=== PATIENT | female | born 2000 | race Caucasian/White ===

== ENCOUNTER 2019-06-25 17:24 | Outpatient (CLI) | payer OTHER, SELFPAY ==
--- NOTE | ~2019-06-25 | US_ITS ---
EXAMINATION: US OB <= 14 weeks fetus EXAM DATE: 06/25/2019 17:44 INDICATION: Check viability. First trimester. TECHNIQUE: Pelvic obstetrical transabdominal sonogram was performed by a technologist. There are mu ltiple grayscale and Doppler images available for interpretation. There are no earlier studies of th is gestation for comparison. FINDINGS: There is an intrauterine gestation with crown-rump length 4.0 cm corresponding to estimated gestational age 10 weeks 6 days. There are no heart tones identified. No subchorionic hemorrha ge. Adnexal regions are unremarkable. IMPRESSION: Nonviable intrauterine gestation, missed . Reviewed, dictated and finalized at location A.
== END 2019-06-25 17:25 | disposition home or self-care (01) ==
LOC: ANHIMG 17:26
PROVIDERS: Visit Provider Obstetrics & Gynecology
DX: O20.0 Threatened abortion (principal); Z3A.00 Weeks of gestation of pregnancy not specified
CPT/HCPCS: 76801

== ENCOUNTER 2019-07-03 01:12 | Day surgery (SDC) | payer OTHER, SELFPAY ==
[2019-06-28 08:40] VITALS: BMI 28.2
[2019-07-03 08:25] VITALS: BP 127/57; PULSE 70; RESP 16; TEMP 36.8; O2SAT 100
[2019-07-03] MEDS: LACTATED RINGERS 1,000 ML 30 ML IV CONT ×2 (08:45→10:41)
--- NOTE | 2019-07-03 09:00 | PM.IMHP ---
H&P: HPI History of Present Illness Chief complaint: Missed Narrative: Sherry Dover is a 18 year old female with known missed . Last ultrasound confirmed demise measuring 10 weeks last week. She has started spotting. She was given options last week of expectant management, misoprostol, or surgical treatment with dilation and currettage. She has been informed of risk benefits of each. She has opted for dilation and currettage. Rh negative. Review of Systems Review of Systems: All systems reviewed & are unremarkable except as noted in HPI and below Constitutional: Constitutional: Reports no additional constitutional complaints and Denies headache(s) Eyes: Eyes: Denies spots in vision ENT: Reports system reviewed and no additional complaints, except as documented and Denies headache(s) Cardiovascular: Cardiovascular: Denies chest pain and Denies dyspnea Respiratory: Respiratory: Denies dyspnea Genitourinary: Genitourinary: Reports no additional female genitourinary complaints Integumentary/Breasts: Skin/Breast: Denies rash Neurologic: Denies confusion and Denies headache(s) Psychiatric: Psychiatric: Denies confusion Hematologic/Lymphatic: Hematologic/Lymphatic: Reports no additional hematologic/lymphatic complaints Allergic/Immunologic: Allergic/Immunologic: Reports no additional allergic/immunologic complaints PMFSH Past Medical History Medical History Encounter for supervision of normal first , first trimester History of urinary reflux Missed Family History Family History Grandparent Diabetes mellitus Hypertension Mother Hypertension Social History Social History Smoking status: Never smoker Alcohol intake: current Drinks per week: 2 Substance use: former Substance use type: marijuana Gender identity (if verbalized by the patient): Female Meds Home Medications and Allergies Home Medications Medication Instructions Recorded Confirmed Type cholecalciferol (vitamin D3) 2,000 unit PO DAILY 06/28/19 06/28/19 History Allergies Allergy/AdvReac Type Severity Reaction Status Date / Time No Known Allergies Allergy Verified 06/25/19 16:05 Exam Const: General: healthy appearing, no acute distress, alert and awake Nutritional Appearance: well nourished Orientation/consciousness: oriented to person, oriented to place, oriented to time and patient oriented x3 HENMT: Head: normal to inspection Eyes: General: appearance normal, both eyes and all related structures Neck: Neck: no lymphadenopathy and supple Chest: Breast/axilla inspection: normal inspection of the axillae Resp: Effort & Inspection: normal respiratory effort and other Auscultation: clear to auscultation bilaterally Cardio: Rate: regular rate Rhythm: regular rhythm GI: Inspection: normal to inspection GI Palp: Yes No hepatosplenomegaly present Rectal Exam: visual inspection normal : General: Yes bladder normal to palpation External Female Exam: normal external appearance and normal appearance of the urethra Speculum Exam - Vagina: normal appearance of the vagina Speculum Exam - Cervix: normal appearance of the cervix Bimanual exam- vagina & uterus: normal bimanual exam, bladder normal to palpation, consistency normal, non-tender, no cervical motion tenderness and other (uterus 10 week size nontender) Bimanual Exam- Adnexa, other: no masses, normal and No adnexal tenderness OB/external & speculum: external exam normal Skin: General skin exam: normal color Neuro: General: oriented to person, oriented to place, oriented to time and patient oriented x3 Cranial nerves: Yes Normal hearing present Extrem: General: normal to inspection Psych: Appearance: grossly normal Mental Status: mental status ana
--- NOTE | 2019-07-03 09:15 | WPDANESEPPF ---
Anes - Initial Pre Proc Eval Procedure: Operation Date: 07/03/19 10:00 Proposed Procedures p Suction Dilation And Curettage - Andrey Funez MD Date/Time: 07/03/19 09:15 Surgeon: Andrey Funez MD Pre Op Diagnosis: Missed Patient Data Age: 18 Gender: F Height: 5 ft 1 in Weight: 68 kg Allergies Allergy/AdvReac Type Severity Reaction Status Date / Time No Known Allergies Allergy Verified 07/03/19 09:17 Home Medications Medication Instructions Recorded Confirmed Type cholecalciferol (vitamin D3) 2,000 unit PO DAILY 06/28/19 06/28/19 History Patient hx anesthesia problems: none Family hx anesthesia problems: none PMFSH Past Medical History Medical History Encounter for supervision of normal first , first trimester History of urinary reflux Missed Family History Family History Grandparent Diabetes mellitus Hypertension Mother Hypertension Social History Social History Smoking status: Never smoker Alcohol intake: current Drinks per week: 2 Substance use: former Substance use type: marijuana Gender identity (if verbalized by the patient): Female Anes - Eval Final PreProcedure Day of Procedure 07/03/19 09:15 Patient weight: overweight Heart: regular rate and rhythm Lungs: clear to auscultation Airway: Mallampati scale class II Neurological: alert and oriented Last oral intake: >/= 8 hours ASA classification: II Emergent: no Anesthetic plan: proceed Anesthesia type and monitoring: general GIVS and standard monitoring Informed Consent: The patient's anesthetic plan and its attendant risks and benefits were discussed with the patient/family/POA. Questions were solicited and answers provided to the satisfaction of the patient/family/POA.
[2019-07-03] MEDS: ceFAZolin 2 GM/D5W 50 ML 2 GM/50 ML BAG IVPB (10:00)
[2019-07-03] MEDS: KETOROLAC 30 MG/ML VIAL (*BKC) IV PUSH (10:28)
[2019-07-03] MEDS: METHYLERGONOVINE MALEATE 0.2 MG/ML VIAL IM (10:28)
--- NOTE | 2019-07-03 10:43 | PM.PROC ---
Procedure Note - Detailed Date of procedure: 07/03/19 Pre-op diagnosis: Missed Post-op diagnosis: same Procedure performed: Suction and sharp dilation and curettage Description of procedure: after informed consent was obtained patient was taken to the operating room and adequate IV sedation was administered. She was placed in high lithotomy position and prepped and draped in sterile fashion. Attention was turned to the vagina speculum was inserted single tooth tenaculum placed on anterior lip of the cervix 10 cc of 1% lidocaine plain was injected at the cervical vaginal interface at 2, 5, 8 and 10:00 o clock. The cervix allowed easily size 2 dilator. She was dilated to a 10 dilator. A size 10 curved suction curette was passed moderate amount of tissue was obtained at this time I instructed anesthesia to give her 0.2 mg of Methergine IM. The sharp curette was passed and there is noted to be moderate amount of tissue this was passed gently until minimal tissue was obtained. The suction was passed several times and if tissue was obtained then the sharp curette was passed gently this was done until there was noted to be good cry in all quadrants. The suction was passed once again and no tissue was obtained. There was an area of ectropion at her outer cervix that had some bleeding and silver nitrate was applied to hemostasis was noted. There was no bleeding noted from the cervix os. The patient tolerated procedure well sponge count was correct. She was taken to recovery in stable condition. Implants: None Anesthesia: MAC and local Surgeon: Andrey Funez MD Estimated blood loss (mL): 150 Drains: No Packing: No Pathology: yes ( products of conception) Complications: No immediate complications Condition: stable Disposition: PACU Findings: Moderate amount of tissue obtained moderate amount of amniotic fluid noted with dilation of the cervix.
[2019-07-03 10:45] VITALS: BP 114/69; PULSE 63; RESP 18
[2019-07-03 11:15] VITALS: BP 110/69; PULSE 67; RESP 19
[2019-07-03 11:45] VITALS: BP 108/71; PULSE 69; RESP 18
--- NOTE | 2019-07-03 12:03 | SUR.PHASEII ---
1150- RhoGam given buttocks, right side
== END 2019-07-03 12:10 | disposition home or self-care (01) ==
PROVIDERS: Visit Provider Obstetrics & Gynecology
PROC: (CPT 59820; principal; 2019-07-03 10:00)
DX: O02.1 Missed abortion (principal)
CPT/HCPCS: 59820; 36415; 86850; 86900; 86901; 88305; 90384; A9270; J0131; J0690; J1885; J2210; J2250; J2405; J2704; J2790; J3010; J7120

== ENCOUNTER 2019-07-08 14:32 | Outpatient (CLI) | payer OTHER, SELFPAY ==
--- NOTE | ~2019-07-08 | US_ITS ---
EXAMINATION: US pelvic complete w TV DATE: 07/08/2019 15:14 INDICATION: Missed . Bleeding after D&C. Comparison:06/25/2019 TECHNIQUE: Multiple transabdominal and endovaginal sonographic images of the pelvis performed. FINDINGS: The uterus measures 8.7 x 5.9 x 7.5 cm. The endometrial complex measures 1.9 cm. Endometriu m is heterogeneous. The ovaries are not visualized. There is no free fluid in the pelvis. There are no abnormal masses seen on either side. IMPRESSION: 1. Thickened heterogeneous endometrium. Cannot exclude retained products of conception in the appropr iate clinical setting. Reviewed, dictated and finalized at location A. IMPRESSION: 1. Thickened heterogeneous endometrium. Cannot exclude retained products of con ception in the appropriate clinical setting.
== END 2019-07-08 14:33 | disposition home or self-care (01) ==
PROVIDERS: Visit Provider Obstetrics & Gynecology
DX: O02.1 Missed abortion (principal); R93.89 Abnormal findings on diagnostic imaging of other specified body structures
CPT/HCPCS: 76830; 76856